=== PATIENT | male | born 1955 | race Caucasian/White ===

== ENCOUNTER → 2018-05-14 | Outpatient (CLI) | payer OTHER | LOC: FIMAGING 16:35 | PROVIDERS: ATTEND Internal Medicine | DX: M53.86 Other specified dorsopathies, lumbar region (principal); M47.896 Other spondylosis, lumbar region ==

== ENCOUNTER → 2018-05-24 | Outpatient (CLI) | payer OTHER | LOC: FIMAGING 08:39 | PROVIDERS: ATTEND Internal Medicine | DX: E78.5 Hyperlipidemia, unspecified (principal); R91.1 Solitary pulmonary nodule ==

== ENCOUNTER → 2018-07-27 | Outpatient (CLI) | payer OTHER | LOC: CIMAGING 17:47 | PROVIDERS: ATTEND Radiology Diagnostic Radiology | DX: Z01.818 Encounter for other preprocedural examination (principal); I65.21 Occlusion and stenosis of right carotid artery | CPT/HCPCS: 70200-PO ==

== ENCOUNTER → 2018-07-30 | Outpatient (CLI) | payer OTHER | LOC: FIMAGING 09:38 | DX: E04.1 Nontoxic single thyroid nodule (principal) ==

== ENCOUNTER → 2018-08-05 | Outpatient (CLI) | payer OTHER ==
[~2018-08-05] MED LIST: LIDOCAINE 1% 300 MG/30 ML SDV ONE
== END ==
LOC: FIMAGING 12:09
PROC: 0G9K3ZX Drainage of Thyroid Gland, Percutaneous Approach, Diagnostic (ICD-10-PCS; principal; 2018-08-05)
DX: E04.1 Nontoxic single thyroid nodule (principal)